=== PATIENT | male | born 1955 | race Two or more races ===

== ENCOUNTER 2022-04-30 19:15 | Emergency (ER) | payer OTHER ==
[~2022-04-30] VITALS: Ht 172.7 cm; Wt 83.9 kg
[2022-04-30] MEDS ORDERED: LISINOPRIL20 MG (19:18)
== END 2022-05-01 00:11 | disposition home or self-care (01) ==
LOC: ER 19:15
DX: U07.1 COVID-19 (principal); Z86.73 Personal history of transient ischemic attack (TIA), and cerebral infarction without residual deficits; Z88.0 Allergy status to penicillin